=== PATIENT | female | born 2000 | race Caucasian/White ===

== ENCOUNTER 2022-08-08 13:35 | Emergency (ER) | payer MEDICAID ==
[~2022-08-08] VITALS: Ht 167.6 cm; Wt 121.2 kg
[2022-08-08 16:15] LABS: Basophils # (auto) 0 10 ^3/uL (0-0.2); Basophils % (auto) 0.4 % (0.0-2.0); Eosinophils # (auto) 0.1 10 ^3/uL (0-0.8); Eosinophils % (auto) 1.1 % (0.0-7.0); Hematocrit 44.8 % (36.0-46.0); Lymphocytes # (auto) 2.4 10 ^3/uL (0.4-5.4); Lymphocytes % (auto) 21.6 % (10.0-50.0); Mean Corpuscular Hemoglobin 28.4 pg (28.0-32.0); Mean Corpuscular Hgb Conc. 33.5 g/dL (32.0-36.0); Mean Corpuscular Volume 84.8 fL (80.0-100.0); Monocytes # (auto) 0.7 10 ^3/uL (0-1.3); Monocytes % (auto) 6.3 % (0.0-12.0); Neutrophils # (auto) 7.8 10 ^3/uL (1.6-8.6); Neutrophils % (auto) 70.6 % (37.0-80.0); Nucleated Red Blood Cells % 0.1 %; Red Blood Cells 5.29 10^6/uL (4.0-5.20); Red Cell Distribution Width 13.9 % (11.8-14.3)
[2022-08-08] MEDS ORDERED: SODIUM CHLORIDE 0.9% 1,000 ML IV ONE (16:15)
[2022-08-08 16:18] LABS: Urine Bacteria FEW /hpf (None Seen); Urine Blood Negative /uL (Negative); Urine Mucus FEW (None Seen); Urine Specific Gravity 1.023 (1.001-1.035); Urine WBC 1 /hpf (0 - 5)
[2022-08-08 16:33] LABS: Chloride 105 mmol/L (98-107); Potassium 4.1 mmol/L (3.5-5.1); Sodium 139 mmol/L (136-145)
[2022-08-08 16:39] LABS: Alcohol, Urine < 3.0 mg/dL (0-10); Amphetamine Screen, Urine NEGATIVE (NEGATIVE); Barbiturate Scree,Urine NEGATIVE (NEGATIVE); Benzodiazephine Screen, Urine NEGATIVE (NEGATIVE); Cannabinoid Screen, Urine NEGATIVE (NEGATIVE); Cocaine Screen, Urine NEGATIVE (NEGATIVE); Opiate Scree,Urine NEGATIVE (NEGATIVE); Phencyclidine Screen, Urine NEGATIVE (NEGATIVE)
[2022-08-08 16:40] LABS: Alanine Aminotransferase 50 U/L (13-56); Albumin 3.7 g/dL (3.4-5.0); Alkaline Phosphatase 159 U/L (45-117); Anion Gap 3 (5-15); Aspartate Aminotransferase 26 U/L (15-37); BUN/Creatinine Ratio 11.4 (10.0-20.0); Bilirubin, Total 0.4 mg/dL (0.2-1.0); Blood Alcohol < 3.0 mg/dL (0-5); Blood Urea Nitrogen 10 mg/dL (7-18); Calcium 8.9 mg/dL (8.5-10.1); Carbon Dioxide 31 mmol/L (21-32); GFR African American 102 mL/min; GFR Non-African American 84 mL/min; Glucose 105 mg/dL (74-106); Lipase 80 U/L (73-393); Total Protein 7.9 g/dL (6.4-8.2)
[2022-08-08] MEDS ORDERED: NITR-52 PO (19:24)
[2022-08-08] MEDS ORDERED: ONDANSETRON ODT 4 MG TAB PO ONE (19:30)
[2022-08-08] MEDS ORDERED: cefTRIAXone SOD 1,000 MG VL IM ONE (19:30)
[2022-08-08 20:00] VITALS: BP 118/64
[2022-08-08] MEDS ORDERED: LIDOCAINE 1% HCL (LOCAL ANESTH.) INJ 20ML MDV ONE (20:04)
== END 2022-08-08 20:17 | disposition home or self-care (01) ==
LOC: ER 13:35
DX: N39.0 Urinary tract infection, site not specified (principal); Z32.02 Encounter for pregnancy test, result negative; Z79.899 Other long term (current) drug therapy
CPT/HCPCS: 36415; 74176; 80053; 80307; 80320; 81001; 81025; 83690; 85025; 96360; 96372; 99285; J0696; J2001; J7030; Q0162

== ENCOUNTER 2022-08-11 11:42 | Emergency (ER) | payer MEDICAID ==
[~2022-08-11] VITALS: Ht 167.6 cm; Wt 118.0 kg
[~2022-08-11 11:42] MED LIST: NITR-52 PO
[2022-08-11 12:42] VITALS: BP 134/61
[2022-08-11 13:08] LABS: Urine Bacteria NONE SEEN /hpf (None Seen); Urine Blood Negative /uL (Negative); Urine Mucus FEW (None Seen); Urine Specific Gravity 1.019 (1.001-1.035); Urine WBC <1 /hpf (0 - 5)
[2022-08-11 13:31] LABS: Basophils # (auto) 0 10 ^3/uL (0-0.2); Basophils % (auto) 0.3 % (0.0-2.0); Eosinophils # (auto) 0.1 10 ^3/uL (0-0.8); Eosinophils % (auto) 1.2 % (0.0-7.0); Hematocrit 45.5 % (36.0-46.0); Hemoglobin 15.1 g/dL (12.2-16.2); Lymphocytes # (auto) 2.1 10 ^3/uL (0.4-5.4); Lymphocytes % (auto) 21.8 % (10.0-50.0); Mean Corpuscular Hemoglobin 28.5 pg (28.0-32.0); Mean Corpuscular Hgb Conc. 33.2 g/dL (32.0-36.0); Mean Corpuscular Volume 85.8 fL (80.0-100.0); Monocytes # (auto) 0.5 10 ^3/uL (0-1.3); Monocytes % (auto) 5.5 % (0.0-12.0); Neutrophils # (auto) 6.8 10 ^3/uL (1.6-8.6); Neutrophils % (auto) 71.2 % (37.0-80.0); Nucleated Red Blood Cells % 0.1 %; White Blood Cell 9.5 10^3/uL (4.4-10.8)
[2022-08-11 13:57] LABS: Albumin 3.7 g/dL (3.4-5.0); Calcium 9.1 mg/dL (8.5-10.1); Potassium 4.4 mmol/L (3.5-5.1)
[2022-08-11 14:00] LABS: BUN/Creatinine Ratio 11.5 (10.0-20.0); Bilirubin, Total 0.3 mg/dL (0.2-1.0); Total Protein 7.9 g/dL (6.4-8.2)
[2022-08-11 14:16] LABS: Alcohol, Urine < 3.0 mg/dL (0-10); Amphetamine Screen, Urine NEGATIVE (NEGATIVE); Barbiturate Scree,Urine NEGATIVE (NEGATIVE); Benzodiazephine Screen, Urine NEGATIVE (NEGATIVE); Cannabinoid Screen, Urine NEGATIVE (NEGATIVE); Cocaine Screen, Urine NEGATIVE (NEGATIVE); Opiate Scree,Urine NEGATIVE (NEGATIVE); Phencyclidine Screen, Urine NEGATIVE (NEGATIVE)
[2022-08-11] MEDS ORDERED: ZOFR4T PO (14:50)
[2022-08-11] MEDS ORDERED: CEPH500C PO (14:50)
== END 2022-08-11 14:59 | disposition home or self-care (01) ==
LOC: ER 11:42
DX: R11.2 Nausea with vomiting, unspecified (principal); I88.0 Nonspecific mesenteric lymphadenitis; K76.0 Fatty (change of) liver, not elsewhere classified; R10.2 Pelvic and perineal pain; Z88.8 Allergy status to other drugs, medicaments and biological substances
CPT/HCPCS: 36415; 74176; 80053; 80307; 81001; 84702; 85025

== ENCOUNTER 2022-09-07 19:59 | Emergency (ER) | payer MEDICAID ==
[~2022-09-07] VITALS: Ht 167.6 cm; Wt 120.9 kg
[~2022-09-07 19:59] MED LIST changes: +CEPH500C PO; +ZOFR4T PO
[2022-09-07 20:45] LABS: Basophils # (auto) 0.1 10 ^3/uL (0-0.2); Basophils % (auto) 0.7 % (0.0-2.0); Eosinophils # (auto) 0.1 10 ^3/uL (0-0.8); Eosinophils % (auto) 1.2 % (0.0-7.0); Hematocrit 45.2 % (36.0-46.0); Hemoglobin 15.2 g/dL (12.2-16.2); Lymphocytes # (auto) 2.6 10 ^3/uL (0.4-5.4); Lymphocytes % (auto) 24.1 % (10.0-50.0); Mean Corpuscular Hemoglobin 28.7 pg (28.0-32.0); Mean Corpuscular Hgb Conc. 33.7 g/dL (32.0-36.0); Mean Corpuscular Volume 85.4 fL (80.0-100.0); Monocytes # (auto) 0.7 10 ^3/uL (0-1.3); Monocytes % (auto) 6.2 % (0.0-12.0); Neutrophils # (auto) 7.4 10 ^3/uL (1.6-8.6); Neutrophils % (auto) 67.8 % (37.0-80.0); Red Blood Cells 5.29 10^6/uL (4.0-5.20); Red Cell Distribution Width 14.1 % (11.8-14.3)
[2022-09-07 21:07] LABS: Albumin 3.6 g/dL (3.4-5.0); Calcium 8.5 mg/dL (8.5-10.1); Potassium 3.7 mmol/L (3.5-5.1)
[2022-09-07 21:11] LABS: BUN/Creatinine Ratio 13.6 (10.0-20.0); Bilirubin, Total 0.3 mg/dL (0.2-1.0); Total Protein 7.4 g/dL (6.4-8.2)
[2022-09-07 21:46] LABS: Urine Bacteria NONE SEEN /hpf (None Seen); Urine Blood Negative /uL (Negative); Urine Mucus FEW (None Seen); Urine Specific Gravity 1.025 (1.001-1.035); Urine WBC 1 /hpf (0 - 5)
[2022-09-07] MEDS ORDERED: HYDROcodone-ACET 10/325MG TAB PO ONE (22:15)
[2022-09-08 00:03] VITALS: BP 148/91
== END 2022-09-08 00:04 | disposition home or self-care (01) ==
LOC: ER 20:01
DX: I88.0 Nonspecific mesenteric lymphadenitis (principal); R10.2 Pelvic and perineal pain; E66.01 Morbid (severe) obesity due to excess calories; Z88.1 Allergy status to other antibiotic agents; Z68.41 Body mass index [BMI] 40.0-44.9, adult
CPT/HCPCS: 36415; 74176; 80053; 81001; 83690; 84702; 85025

== ENCOUNTER 2022-10-21 21:26 | Emergency (ER) | payer MEDICAID ==
[~2022-10-21] VITALS: Ht 167.6 cm; Wt 118.1 kg
[2022-10-21 21:38] VITALS: BP 141/69; RESP 16; O2SAT 98
[2022-10-21 21:47] VITALS: PULSE 93
[2022-10-21] MEDS ORDERED: KETOROLAC TROMETH 60MG/2ML VIAL IM ONE (22:00)
[2022-10-21 22:17] LABS: Basophils # (auto) 0 10 ^3/uL (0-0.2); Basophils % (auto) 0.4 % (0.0-2.0); Eosinophils # (auto) 0.2 10 ^3/uL (0-0.8); Eosinophils % (auto) 1.4 % (0.0-7.0); Hematocrit 43.6 % (36.0-46.0); Hemoglobin 14.4 g/dL (12.2-16.2); Lymphocytes # (auto) 3.3 10 ^3/uL (0.4-5.4); Lymphocytes % (auto) 26.9 % (10.0-50.0); Mean Corpuscular Hemoglobin 28.3 pg (28.0-32.0); Mean Corpuscular Hgb Conc. 33.1 g/dL (32.0-36.0); Mean Corpuscular Volume 85.7 fL (80.0-100.0); Monocytes # (auto) 0.7 10 ^3/uL (0-1.3); Monocytes % (auto) 5.7 % (0.0-12.0); Neutrophils # (auto) 8.1 10 ^3/uL (1.6-8.6); Neutrophils % (auto) 65.6 % (37.0-80.0); Nucleated Red Blood Cells % 0.1 %; Red Blood Cells 5.09 10^6/uL (4.0-5.20); Red Cell Distribution Width 13.8 % (11.8-14.3); White Blood Cell 12.4 10^3/uL (4.4-10.8)
[2022-10-21 22:21] LABS: Albumin 3.7 g/dL (3.4-5.0); Magnesium 2.5 mg/dL (1.6-2.6); Potassium 3.8 mmol/L (3.5-5.1)
[2022-10-21 22:26] LABS: BUN/Creatinine Ratio 16.9 (10.0-20.0); Bilirubin, Total 0.2 mg/dL (0.2-1.0); Total Protein 7.9 g/dL (6.4-8.2)
== END 2022-10-22 01:23 | disposition home or self-care (01) ==
LOC: ER 21:26
DX: R51.9 Headache, unspecified (principal); R42 Dizziness and giddiness; E66.01 Morbid (severe) obesity due to excess calories; Z68.41 Body mass index [BMI] 40.0-44.9, adult; Z79.899 Other long term (current) drug therapy
CPT/HCPCS: 36415; 70450; 80053; 83735; 84484; 85025; 93005; 96372; 99285; J1885

== ENCOUNTER 2023-01-17 20:16 | Emergency (ER) | payer MEDICAID ==
[~2023-01-17] VITALS: Ht 167.6 cm; Wt 122.7 kg
[2023-01-17 20:23] VITALS: BP 141/84; PULSE 102; RESP 18; O2SAT 97
[2023-01-17 21:16] LABS: Urine Bacteria NONE SEEN /hpf (None Seen); Urine Blood 2+ /uL (Negative); Urine Clarity HAZY (Clear); Urine Color Yellow (Yellow); Urine Mucus FEW (None Seen); Urine Protein, UAD Negative (Negative); Urine Specific Gravity 1.023 (1.001-1.035); Urine Urobilinogen Normal (Negative); Urine WBC 4 /hpf (0 - 5)
[2023-01-17 21:23] LABS: Basophils # (auto) 0.1 10 ^3/uL (0-0.2); Basophils % (auto) 0.4 % (0.0-2.0); Eosinophils # (auto) 0.2 10 ^3/uL (0-0.8); Eosinophils % (auto) 1.6 % (0.0-7.0); Hematocrit 43.9 % (36.0-46.0); Hemoglobin 14.2 g/dL (12.2-16.2); Lymphocytes # (auto) 3.6 10 ^3/uL (0.4-5.4); Lymphocytes % (auto) 25.9 % (10.0-50.0); Mean Corpuscular Hemoglobin 27.6 pg (28.0-32.0); Mean Corpuscular Hgb Conc. 32.4 g/dL (32.0-36.0); Monocytes # (auto) 0.9 10 ^3/uL (0-1.3); Monocytes % (auto) 6.1 % (0.0-12.0); Neutrophils # (auto) 9.3 10 ^3/uL (1.6-8.6); Red Blood Cells 5.16 10^6/uL (4.0-5.20); Red Cell Distribution Width 14.1 % (11.8-14.3); White Blood Cell 14.1 10^3/uL (4.4-10.8)
[2023-01-17 21:43] LABS: Alanine Aminotransferase 28 U/L (7-40); Albumin 4.6 g/dL (3.2-4.8); Alkaline Phosphatase 160 U/L (46-116); Anion Gap 6 (5-15); Aspartate Aminotransferase 16 U/L (13-40); BUN/Creatinine Ratio 10.6 (10.0-20.0); Blood Urea Nitrogen 10 mg/dL (9-23); Calcium 9.5 mg/dL (8.7-10.4); Carbon Dioxide 28 mmol/L (20-30); Chloride 105 mmol/L (98-107); Glucose 97 mg/dL (74-106); Lipase 49 U/L (12-53); Potassium 4.1 mmol/L (3.5-5.1); Sodium 139 mmol/L (136-145)
[2023-01-17 21:44] LABS: Bilirubin, Total 0.3 mg/dL (0.2-1.0); Total Protein 7.5 g/dL (5.7-8.2)
[2023-01-17] MEDS ORDERED: NITR-52 PO (23:03)
== END 2023-01-18 00:29 | disposition home or self-care (01) ==
LOC: ER 20:16
DX: N39.0 Urinary tract infection, site not specified (principal); Z88.8 Allergy status to other drugs, medicaments and biological substances; Z79.899 Other long term (current) drug therapy
CPT/HCPCS: 36415; 80053; 81001; 81025; 83690; 85025

== ENCOUNTER 2024-09-24 20:57 | Emergency (ER) | payer MEDICAID ==
[~2024-09-24] VITALS: Ht 167.6 cm; Wt 128.0 kg
[2024-09-24 20:57] VITALS: BP 152/96; PULSE 97; RESP 20; TEMP 98.3; O2SAT 97
--- NOTE | 2024-09-24 22:27 | ED.PDOC ---
RESEARCH DEVELOPMENT MANAGER HPI Comments 24 year old female presents to the ED with a chief complaint of vaginal bleeding onset today (09/24/24). Patient took an at home test this morning, tested positive. A few hours after, patient began experiencing vaginal spotting as well as cramping, suprapubic pain, rates pain 4/10, dizziness. P:1 A:1. PMHx PCOS, Endometriosis. Denies dysuria, hematuria, fevers, chills, chest pain, shortness of breath, nausea, vomiting, diarrhea. No other symptoms or modifying factors present at this time. Chief Complaint: Vaginal Bleed Time Seen by MD: 22:00 Reviewed Notes: Medications, Allergies Allergies: Coded Allergies: Vancomycin (Verified Allergy, Unknown, 08/08/22) Home Meds Active Scripts Nitrofurantoin (Nitrofurantoin) 100 Mg Cap, 1 CAP PO BID for 7 Days, #14 CAP Prov:МАРИЯ CAMPOVERDE 01/17/23 Ondansetron Odt 4MG Tab (ZOFRAN PO) 4 Mg Tb, 4 MG PO BID, #14 TAB ODT TAB-DISSOLVE IN MOUTH, THEN SWALLOW Prov:SHAUNA PALOOM 08/11/22 Cephalexin Monohydrate (Cephalexin) 500 Mg Cap, 1 CAP PO QID, #32 CAP Prov:SHAUNA PALOMO 08/11/22 Nitrofurantoin (Nitrofurantoin) 100 Mg Cap, 1 CAP PO BID for 5 Days, #10 CAP Prov:МАРИЯ CAMPOVERDE 08/08/22 Information Source: Patient Mode of Arrival: Ambulatory Timing: Hours Prehospital treatment: None Severity: Moderate Vaginal Discharge: None Vaginal Lesions: None Bleeding Quality: Bright Red Vaginal Mass: None Onset Of Mass/Bleeding: Spontaneous Sexual Activity: Last Consensual [place]: Unknown Control: None History of: Current Symptoms of Possible : Missed Period Associated Signs and Symptoms: Vaginal Bleeding, Cramping Vital Signs Vital Signs Date Time Temp Pulse Resp B/P (MAP) Pulse Ox O2 Delivery O2 Flow Rate FiO2 09/24/24 20:57 98.3 97 20 152/96 (114) 97 98.3 Physical Exam PHYSICAL EXAM: General: Awake, alert and oriented. No acute distress. Skin: Skin in warm, dry and intact. Appropriate color for ethnicity. HEENT: The head is normocephalic and atraumatic. Conjunctivae are clear without exudates or hemorrhage. Sclera is non-icteric. EOM are intact. No signs of nystagmus. Eyelids are normal in appearance without swelling or lesions. Oral mucosa is pink and moist Neck: The neck is supple with normal range of motion. No JVD. Cardiac: Heart rate and rhythm are normal. No murmurs, gallops, or rubs are auscultated. Respiratory: No signs of respiratory distress. Lung sounds are clear in all lobes bilaterally without rales, rhonchi, or wheezes. Abdominal: Abdomen is soft, mild suprapubic tenderness without distention, guarding or rigidity. Extremities: Upper and lower extremities are atraumatic in appearance without deformity or edema. Neurological: The patient is awake, alert and oriented to person, place, and time with normal speech. Speech is clear. There is no facial asymmetry. Psychiatric: Appropriate mood and affect. Good judgement and insight. Review of Systems: As stated in HPI Past Medical History PAST MEDICAL HISTORY: Denies Surgical History: Denies all surgeries WEB APPLICATIONS ARCHITECT History: Endometriosis Family History Family History: Reviewed,noncontributory to illness Social History Smoker: Non-Smoker Alcohol: Denies ETOH Use Drugs: Denies Drug Use Lives In: Home Was a procedure done? Was a procedure done?: No Differential Diagnosis (WEB APPLICATIONS ARCHITECT) Vaginal Bleeding: - Complete, - Incomplete, - Inevitable, - Missed, - Threatened, Ectopic , Menorrhagia, Menometrorrhagia, Menstrual Bleeding, PID, UTI X-Ray, Labs, Meds, VS Vital Signs Date Time Temp Pulse Resp B/P (MAP) Pulse Ox O2 Delivery O2 Flow Rate FiO2 09/24/24 20:57 98.3 97 20 152/96 (114) 97 98.3 Lab Test 09/24/24 21:00 Range/Units Urine Color Light-yellow Yellow Urine Clarity Clear Clear Urine pH 7.0 5.0-9.0 Urine Specific [place] 1.017 1.001-1.035 Urine Protein Negative Negative Urine Ketones Negative Negative Urine Blood Negative Negative /uL Urine Nitrite Negative Negative Urine Bilirubin Negative Negative Urine Urobilinogen Normal Negative mg/dL Urine Leukocyte Esterase Negative Negative /uL Urine RBC <1 0 - 4 /hpf Urine Microscopic WBC 1 0-5 /HPF Urine Squamous Epithelial Cells Few <5 /hpf Urine Bacteria None seen None Seen /hpf Urine Glucose Normal Normal mg/dL Urine Test See comment A Negative Time of 1ST Reevaluation: 22:30 Reevaluation 1ST: Unchanged Patient Education/Counseling: Other Family Education/Counseling: No Family Present Departure 1 Departure Time of Disposition: 05:11 Impression: Primary Impression: Vaginal bleeding during Additional Impression: Eloped from emergency department Disposition: 07 LEFT AWOL/ELOPED Condition: Other Comments Patient was seen and evaluated, discussed plan of care with patient. She eloped from the ED prior to completing workup. Critical Care Note Critical Care Time?: No Stability Stability form required: No I personally scribed for ROLF HOOVER MD ([email or web address]) on 09/24/24 at 22:27. Electronically submitted by Angie Mosley ([email or web address]). ROLF HOOVER MD Sep 24, 2024 22:27
[2024-09-24 23:28] LABS: Urine Protein, UAD Negative (Negative)
== END 2024-09-25 00:34 | disposition left against medical advice (07) ==
LOC: ER 20:57
DX: O99.281 Endocrine, nutritional and metabolic diseases complicating pregnancy, first trimester (principal); E28.2 Polycystic ovarian syndrome; Z88.1 Allergy status to other antibiotic agents; Z79.899 Other long term (current) drug therapy; Z3A.01 Less than 8 weeks gestation of pregnancy
CPT/HCPCS: 81001; 81025